=== PATIENT | male | born 1975 | race Caucasian/White ===

== ENCOUNTER 2016-10-31 22:02 | Emergency (ER) | payer BC ==
[~2016-10-31] VITALS: Ht 182.9 cm; Wt 125.0 kg
[2016-10-31 22:08] VITALS: TEMP 98.4
[2016-10-31] MEDS ORDERED: ZYRTEC5 MG PO (22:12)
[2016-10-31] MEDS ORDERED: ZESTRIL 10MG10 MG PO (22:12)
[2016-10-31] MEDS ORDERED: FLONASEALLERGY NS (22:13)
[2016-10-31 23:37] VITALS: BP 134/76; PULSE 90
[2016-10-31] MEDS ORDERED: PERCOCET 325 MG1 TA2 PO (23:41)
[2016-10-31] MEDS ORDERED: ATIVAN 0.50.5 MG/TAB PO (23:41)
== END 2016-10-31 23:58 | disposition home or self-care (01) ==
LOC: COL.ER 22:02
DX: M54.5 Low back pain (principal); I10 Essential (primary) hypertension
CPT/HCPCS: J1885; J2060

== ENCOUNTER → 2019-02-06 | Outpatient (CLI) | payer BC ==
[~2019-02-06] MED LIST: ATIVAN 0.50.5 MG/TAB PO; FLONASEALLERGY NS; PERCOCET 325 MG1 TA2 PO; ZESTRIL 10MG10 MG PO; ZYRTEC5 MG PO
== END ==
LOC: COL.VAS 12:23
DX: I10 Essential (primary) hypertension (principal); R01.1 Cardiac murmur, unspecified